=== PATIENT | male | born 2000 | race African-American/Black ===

== ENCOUNTER 2022-05-27 11:09 | Emergency (ER) | payer MEDICAID ==
[~2022-05-27] VITALS: Ht 167.6 cm; Wt 59.0 kg
--- NOTE | 2022-05-27 11:37 | NUR ---
BIBS C/O ABDOMINAL PAIN, FEEL SWOLLEN/ CANT STRAIGHTEN UP. PAIN IS 8/10 ON PAIN SCALE. VITALS ARE WITHIN NORMAL LIMITS. AWAITING MD VALDEZ.
[2022-05-27 12:50] LABS: BASOPHILS % (AUTO) 0.2 % (0.0-2.0); EOSINOPHILS % (AUTO) 0.5 % (0.0-6.0); HEMATOCRIT 40 % (39-51); HEMOGLOBIN 13.6 g/dL (13.5-17.5); LYMPHOCYTES # (AUTO) 1.4 K/uL (0.8-4.8); LYMPHOCYTES % (AUTO) 21.4 % (20.0-44.0); MEAN CORPUSCULAR HGB CONC 34 g/dl (31.0-36.0); MEAN CORPUSCULAR VOLUME 87 fL (80-96); MONOCYTES # (AUTO) 0.8 K/uL (0.1-1.30); MONOCYTES % (AUTO) 12.5 % (2.0-12.0); NEUTROPHILS # (AUTO) 4.4 K/uL (1.8-8.9); NEUTROPHILS % (AUTO) 65.4 % (43.0-81.0); PLATELET COUNT (AUTO) 283 K/uL (150-450); RED BLOOD CELL COUNT(AUTO) 4.55 MIL/uL (4.5-6.0); WHITE BLOOD COUNT (AUTO) 6.7 K/uL (4.3-11.0)
[2022-05-27 13:10] LABS: ALBUMIN 4.3 g/dL (3.4-5.0); BILIRUBIN,DIRECT 0.1 mg/dL (0.0-0.2); BILIRUBIN,TOTAL 0.5 mg/dL (0.2-1.0); CALCIUM, SERUM 9.5 mg/dL (8.5-10.1); POTASSIUM 3.7 mmol/L (3.5-5.1); TOTAL PROTEIN, SERUM 8.3 g/dL (6.4-8.2)
[2022-05-27] MEDS ORDERED: KETOROLAC TROMETHAMINE INJ 30 MG/ML VIAL IM ONE (13:30)
[2022-05-27] MEDS ORDERED: KETOROLAC TROMETHAMINE INJ 30 MG/ML VIAL ONE (13:38)
[2022-05-27 13:54] LABS: CREATININE 0.8 mg/dL (0.6-1.3)
[2022-05-27] MEDS ORDERED: HYDROCODONE/APAP 5/325MG TABLET PO ONE (14:00)
[2022-05-27] MEDS ORDERED: HYDROCODONE/APAP 5/325MG TABLET ONE (14:00)
[2022-05-27] MEDS ORDERED: HYDR-4209 PO (14:14)
[2022-05-27] MEDS ORDERED: IBUP-1957 PO (14:14)
[2022-05-27] MEDS ORDERED: DICY10CA37 PO (14:23)
[2022-05-27] MEDS ORDERED: SIME80TA15 PO (14:23)
[2022-05-27 14:33] VITALS: BP 122/71
--- NOTE | 2022-05-27 14:34 | NUR ---
Patient discharged to home in stable condition. Written and verbal after care instructions given. Patient verbalizes understanding of instruction.
== END 2022-05-27 14:34 | disposition home or self-care (01) ==
LOC: ER 11:25
DX: R10.9 Unspecified abdominal pain (principal); Z79.899 Other long term (current) drug therapy
CPT/HCPCS: 99284; 74176; 96372; 85025; 80048; 83690; 80076; 36415; J1885